=== PATIENT | female | born 1945 | race African-American/Black ===

== ENCOUNTER 2018-01-01 07:16 | Inpatient (IN) | payer OTHER, MEDICAID ==
[~2018-01-01] VITALS: Ht 175.3 cm; Wt 62.6 kg
[~2018-01-01 07:16] MED LIST: AMLO5TAB88; FURO-151; INSULIN; LOSA50TA20
[2018-01-01 10:51] LABS: HEMATOCRIT. 36.8 % (36.0-48.0); HEMOGLOBIN. 12.1 g/dL (12.0-16.0); MEAN CORPUSCULAR HEMOGLOBIN 29.8 pg (28.0-32.0); MEAN CORPUSCULAR VOLUME 90.8 fL (81.0-99.0); MEAN PLATELET VOLUME 7.7 fl (7.4-10.4); PLATELET 120 x1000/uL (130-400); RED BLOOD CELL COUNT 4.05 mill/uL (4.2-5.4); RED CELL DISTRIBUTION WIDTH 16.5 % (11.6-14.6)
[2018-01-01 10:59] LABS: INR 1.1; PARTIAL THROMBOPLASTIN TIME 27.3 sec (23.4-31.0); PROTHROMBIN TIME 11.8 sec (9.4-11.6)
[2018-01-01] MEDS ORDERED: MAGNESIUM/ALUMINUM HYDROXIDE/SIMETHICONE 30ML UDC PO PRN (11:00)
[2018-01-01] MEDS ORDERED: MORPHINE SULFATE 4 MG/ML CPJ (NOT FOR IM USE) IV PRN (11:00)
[2018-01-01] MEDS ORDERED: GUAIFENESIN 200MG/10ML SUGAR FREE UDC PO PRN (11:00)
[2018-01-01] MEDS ORDERED: IPRATROPIUM/ALBUTEROL 0.5-3(2.5)MG/3ML NEB INH PRN (11:00)
[2018-01-01] MEDS ORDERED: ENOXAPARIN 40MG/0.4ML SYR SUBCUT SCH (11:00)
[2018-01-01] MEDS ORDERED: DOCUSATE SODIUM 100MG CAPSULE PO PRN (11:00)
[2018-01-01] MEDS ORDERED: DIPHENHYDRAMINE 50MG/ML VIAL IV PRN (11:00)
[2018-01-01] MEDS ORDERED: LORAZEPAM 2MG/ML CPJ IV PRN (11:00)
[2018-01-01] MEDS ORDERED: ONDANSETRON HCL 4MG/2ML VIAL IV PRN (11:00)
[2018-01-01] MEDS ORDERED: NA PHOS,M-B/NA PHOS,DI-BA ENEMA 118ML PR PRN (11:00)
[2018-01-01 11:02] LABS: CHLORIDE 98 mEq/L (98-107)
[2018-01-01] MEDS: ACETAMINOPHEN 325MG TABLET PO PRN (11:43)
[2018-01-01 12:18] LABS: PLATELET ESTIMATE SLIGHTLY DECREASED
[2018-01-01 12:30] VITALS: BP 178/82
[2018-01-01] MEDS: ENOXAPARIN 30MG/0.3ML SYR SUBCUT SCH (14:35)
[2018-01-01] MEDS: CLONIDINE 0.1MG TABLET PO PRN (14:36)
[2018-01-01] MEDS: HYDROCODONE/ACETAMINOPHEN 5/325MG TABLET PO PRN (14:36)
[2018-01-01 15:53] VITALS: BP 178/82
[2018-01-01 16:00] VITALS: BP 153/77
[2018-01-01] MEDS ORDERED: DEXTROSE 50% WATER 50ML SYRINGE IV PRN (17:45)
[2018-01-01] MEDS: BLOOD SUGAR DIAGNOSTIC STRIP TEST SCH ×2 (18:04→21:00)
[2018-01-01] MEDS: INSULIN LISPRO 100 UNITS/ML SUBCUT SCH ×2 (18:18→21:07)
[2018-01-01] MEDS ORDERED: POTASSIUM CHLORIDE 20MEQ TABLET SR PO NR (19:30)
[2018-01-01 20:00] VITALS: BP 142/75
[2018-01-02 04:00] VITALS: BP 155/84
[2018-01-02 05:35] LABS: BASOPHILS % 0.7 % (0.0-2.0); EOSINOPHILS % 2.4 % (0.0-5.0); HEMATOCRIT. 31.7 % (36.0-48.0); HEMOGLOBIN. 10.5 g/dL (12.0-16.0); LYMPHOCYTES % 27.8 % (20.0-50.0); MEAN CORPUSCULAR HEMOGLOBIN 29.8 pg (28.0-32.0); MEAN CORPUSCULAR VOLUME 89.7 fL (81.0-99.0); MEAN PLATELET VOLUME 8.6 fl (7.4-10.4); MONOCYTES % 9.7 % (2.0-8.0); NEUTROPHILS % 59.4 % (40.0-76.0); PLATELET 96 x1000/uL (130-400); RED BLOOD CELL COUNT 3.53 mill/uL (4.2-5.4); RED CELL DISTRIBUTION WIDTH 16.1 % (11.6-14.6)
[2018-01-02 07:38] LABS: CHLORIDE 99 mEq/L (98-107)
[2018-01-02] MEDS: BLOOD SUGAR DIAGNOSTIC STRIP TEST SCH ×4 (07:40→21:30)
[2018-01-02 08:00] VITALS: BP 157/81
[2018-01-02 08:20] LABS: HDL CHOLESTEROL 45 mg/dL (40-59); LDL CHOLESTEROL 49 mg/dL (5-100)
[2018-01-02] MEDS: INSULIN LISPRO 100 UNITS/ML SUBCUT SCH ×4 (08:43→21:37)
[2018-01-02] MEDS: LOSARTAN POTASSIUM 50 MG TABLET PO SCH (08:46)
[2018-01-02] MEDS: FUROSEMIDE 40MG TABLET PO SCH (08:47)
[2018-01-02] MEDS: AMLODIPINE 5MG TABLET PO SCH (08:47)
[2018-01-02] MEDS: ASPIRIN 81MG EC TABLET PO SCH (08:47)
[2018-01-02] MEDS: ENOXAPARIN 30MG/0.3ML SYR SUBCUT SCH (08:47)
[2018-01-02] MEDS: HYDROCODONE/ACETAMINOPHEN 5/325MG TABLET PO PRN (10:15)
[2018-01-02 12:00] VITALS: BP 150/82
[2018-01-02 16:00] VITALS: BP 161/87
[2018-01-02] MEDS: ACETAMINOPHEN 325MG TABLET PO PRN (16:06)
[2018-01-02] MEDS: CLONIDINE 0.1MG TABLET PO PRN (16:07)
[2018-01-02 18:30] VITALS: BP 149/77
[2018-01-02 20:00] VITALS: BP 152/84
[2018-01-02] MEDS: IPRATROPIUM/ALBUTEROL 0.5-3(2.5)MG/3ML NEB HHN SCH (20:15)
[2018-01-02 20:20] LABS: BG BASE EXCESS 1.2 mmol/L (-2.0-2.0); BG CARBOXYHEMOGLOBIN 0.6 % (0.5-1.5); BG DEOXYHEMOGLOBIN 3.5 % (0.0-5.0); BG FRACTION INSPIRED OXYGEN 70; BG HCO3 ACT 25.9 mmol/L (22.0-26.0); BG METHEMOGLOBIN 0.3 % (0.0-1.5); BG OXYGEN SATURATION 96.5 % (92.0-98.5); BG OXYHEMOGLOBIN 95.6 % (94.0-97.0); BG PCO2 41.2 mmHg (35.0-45.0); BG PH 7.416 (7.350-7.450); BG PO2 87.6 mmHg (75.0-100.0); BG SAMPLE SITE LEFT RADIAL; BG TOTAL HEMOGLOBIN 11.4 g/dL (12.0-18.0); BG VENT MODE MASK - SIMPLE
[2018-01-03] VITALS: BP 130/76
[2018-01-03] MEDS: IPRATROPIUM/ALBUTEROL 0.5-3(2.5)MG/3ML NEB HHN SCH ×7 (00:32→23:54)
[2018-01-03 04:00] VITALS: BP 154/80
[2018-01-03] MEDS: BLOOD SUGAR DIAGNOSTIC STRIP TEST SCH ×4 (06:03→21:36)
[2018-01-03 06:43] LABS: BASOPHILS % 0.4 % (0.0-2.0); EOSINOPHILS % 1.5 % (0.0-5.0); HEMATOCRIT. 32.6 % (36.0-48.0); HEMOGLOBIN. 10.8 g/dL (12.0-16.0); LYMPHOCYTES % 25.6 % (20.0-50.0); MEAN CORPUSCULAR HEMOGLOBIN 29.6 pg (28.0-32.0); MEAN CORPUSCULAR VOLUME 89.6 fL (81.0-99.0); MEAN PLATELET VOLUME 8.2 fl (7.4-10.4); MONOCYTES % 8.7 % (2.0-8.0); NEUTROPHILS % 63.8 % (40.0-76.0); PLATELET 112 x1000/uL (130-400); RED BLOOD CELL COUNT 3.64 mill/uL (4.2-5.4); RED CELL DISTRIBUTION WIDTH 16.3 % (11.6-14.6)
[2018-01-03] MEDS: INSULIN LISPRO 100 UNITS/ML SUBCUT SCH ×4 (07:29→21:37)
[2018-01-03] MEDS: ENOXAPARIN 30MG/0.3ML SYR SUBCUT SCH (07:30)
[2018-01-03 08:00] VITALS: BP 132/71
[2018-01-03] MEDS: FUROSEMIDE 40MG TABLET PO SCH (09:14)
[2018-01-03] MEDS: AMLODIPINE 5MG TABLET PO SCH (09:14)
[2018-01-03] MEDS: LOSARTAN POTASSIUM 50 MG TABLET PO SCH (09:14)
[2018-01-03] MEDS: ASPIRIN 81MG EC TABLET PO SCH (09:14)
[2018-01-03 12:00] VITALS: BP 141/86
[2018-01-03 16:00] VITALS: BP 158/82
[2018-01-03 20:00] VITALS: BP 152/84
[2018-01-04] VITALS (7 sets, daily range): BP systolic 141–160; BP diastolic 75–89
[2018-01-04] MEDS: IPRATROPIUM/ALBUTEROL 0.5-3(2.5)MG/3ML NEB HHN SCH ×5 (03:26→20:16)
[2018-01-04] MEDS: BLOOD SUGAR DIAGNOSTIC STRIP TEST SCH ×4 (06:38→20:20)
[2018-01-04] MEDS: INSULIN LISPRO 100 UNITS/ML SUBCUT SCH ×5 (08:42→20:24)
[2018-01-04] MEDS: ASPIRIN 81MG EC TABLET PO SCH (08:42)
[2018-01-04] MEDS: LOSARTAN POTASSIUM 50 MG TABLET PO SCH (08:43)
[2018-01-04] MEDS: FUROSEMIDE 40MG TABLET PO SCH (08:43)
[2018-01-04] MEDS: AMLODIPINE 5MG TABLET PO SCH (08:43)
[2018-01-04] MEDS: ENOXAPARIN 30MG/0.3ML SYR SUBCUT SCH (08:46)
[2018-01-04 13:25] LABS: BASOPHILS % 0.4 % (0.0-2.0); HEMATOCRIT. 33.1 % (36.0-48.0); LYMPHOCYTES % 18.3 % (20.0-50.0); MEAN CORPUSCULAR HEMOGLOBIN 29.9 pg (28.0-32.0); MEAN CORPUSCULAR VOLUME 89.8 fL (81.0-99.0); MEAN PLATELET VOLUME 8.6 fl (7.4-10.4); MONOCYTES % 8.1 % (2.0-8.0); NEUTROPHILS % 71.2 % (40.0-76.0); PLATELET 121 x1000/uL (130-400); RED BLOOD CELL COUNT 3.69 mill/uL (4.2-5.4); RED CELL DISTRIBUTION WIDTH 16.3 % (11.6-14.6)
[2018-01-04] MEDS: ACETAMINOPHEN 325MG TABLET PO PRN (14:12)
[2018-01-04] MEDS: HYDROCODONE/ACETAMINOPHEN 5/325MG TABLET PO PRN (20:21)
== END 2018-01-04 22:15 | disposition short-term general hospital (02) | DRG 291 ==
LOC: ER 07:44 → 7WST 10:33 → EDBEDREQ 10:36 → ENRESERV 10:52
PROVIDERS: ADMIT Internal Medicine; ATTEND Internal Medicine
PROC: 5A1D70Z Performance of Urinary Filtration, Intermittent, Less than 6 Hours Per Day (ICD-10-PCS; principal; 2018-01-02)
PROC: 5A1D70Z Performance of Urinary Filtration, Intermittent, Less than 6 Hours Per Day (ICD-10-PCS; 2018-01-03)
PROC: 5A1D70Z Performance of Urinary Filtration, Intermittent, Less than 6 Hours Per Day (ICD-10-PCS; 2018-01-04)
DX: I13.2 Hypertensive heart and chronic kidney disease with heart failure and with stage 5 chronic kidney disease, or end stage renal disease (principal); I50.33 Acute on chronic diastolic (congestive) heart failure; J96.01 Acute respiratory failure with hypoxia; N18.6 End stage renal disease; E11.22 Type 2 diabetes mellitus with diabetic chronic kidney disease; D64.9 Anemia, unspecified; I25.10 Atherosclerotic heart disease of native coronary artery without angina pectoris; E03.9 Hypothyroidism, unspecified; E87.6 Hypokalemia; Z99.2 Dependence on renal dialysis
CPT/HCPCS: 36415; 36600; 71045; 80048; 80053; 80061; 82375; 82805; 82962; 83690; 84439; 84443; 84484; 85025; 85610; 85730; 93005; 93306; 94640; 99285; J1650; J1815; J7030; J7620

== ENCOUNTER 2018-06-12 17:04 | Inpatient (IN) | payer OTHER, MEDICAID ==
[~2018-06-12] VITALS: Ht 170.2 cm; Wt 62.6 kg
[~2018-06-12 17:04] MED LIST changes: -INSULIN
[2018-06-12 17:56] LABS: BASOPHILS % 0.8 % (0.0-2.0); EOSINOPHILS % 1.1 % (0.0-5.0); HEMATOCRIT. 43.6 % (36.0-48.0); HEMOGLOBIN. 14.1 g/dL (12.0-16.0); LYMPHOCYTES % 16.9 % (20.0-50.0); MEAN CORPUSCULAR HEMOGLOBIN 30.4 pg (28.0-32.0); MEAN PLATELET VOLUME 8.4 fl (7.4-10.4); MONOCYTES % 6.1 % (2.0-8.0); NEUTROPHILS % 75.1 % (40.0-76.0); PLATELET 126 x1000/uL (130-400); RED BLOOD CELL COUNT 4.64 mill/uL (4.2-5.4); RED CELL DISTRIBUTION WIDTH 18.2 % (11.6-14.6)
[2018-06-12 18:00] LABS: CHLORIDE 95 mEq/L (98-107)
[2018-06-12 18:04] LABS: INR 1.2; PARTIAL THROMBOPLASTIN TIME 29.9 sec (23.4-31.0); PROTHROMBIN TIME 11.6 sec (9.1-11.1)
[2018-06-12] MEDS ORDERED: ASPIRIN 325MG EC TABLET PO ONE (19:45)
[2018-06-12 23:13] VITALS: BP 134/74
[2018-06-13] VITALS (8 sets, daily range): BP systolic 110–154; BP diastolic 56–77
[2018-06-13] MEDS: ASPIRIN 325MG EC TABLET PO SCH ×2 (00:54→08:25)
[2018-06-13] MEDS: CARVEDILOL 3.125 MG TABLET PO SCH ×3 (00:55→21:57)
[2018-06-13] MEDS: AMLODIPINE 10MG TABLET PO SCH ×2 (00:56→08:14)
[2018-06-13 06:08] LABS: PHOSPHORUS 4.7 mg/dL (2.5-4.9)
[2018-06-13 06:49] LABS: BASOPHILS % 0.3 % (0.0-2.0); EOSINOPHILS % 2.1 % (0.0-5.0); HEMATOCRIT. 38.2 % (36.0-48.0); HEMOGLOBIN. 12.4 g/dL (12.0-16.0); LYMPHOCYTES % 31.2 % (20.0-50.0); MEAN CORPUSCULAR HEMOGLOBIN 30.2 pg (28.0-32.0); MEAN CORPUSCULAR VOLUME 93.1 fL (81.0-99.0); MONOCYTES % 8.8 % (2.0-8.0); NEUTROPHILS % 57.6 % (40.0-76.0); PLATELET 110 x1000/uL (130-400); RED CELL DISTRIBUTION WIDTH 17.7 % (11.6-14.6)
[2018-06-13] MEDS: BLOOD SUGAR DIAGNOSTIC STRIP TEST SCH ×8 (07:40→21:38)
[2018-06-13] MEDS ORDERED: INSULIN LISPRO 100 UNITS/ML SUBCUT SCH (08:10)
[2018-06-13] MEDS: SEVELAMER CARBONATE 800 MG TABLET PO SCH ×3 (08:25→17:32)
[2018-06-13] MEDS ORDERED: FOLIC ACID/VITAMIN B COMP W-C TABLET PO SCH (09:00)
[2018-06-13] MEDS: INSULIN LISPRO 100 UNITS/ML SUBCUT SCH ×4 (09:09→21:51)
[2018-06-13] MEDS ORDERED: DEXTROSE 50% WATER 50ML SYRINGE IV PRN ×2 (09:15)
== END 2018-06-13 22:15 | disposition home or self-care (01) | DRG 291 ==
LOC: ER 17:14 → 7WST 19:55 → ENRESERV 21:02
PROVIDERS: ADMIT Internal Medicine; ATTEND Internal Medicine
PROC: 5A1D70Z Performance of Urinary Filtration, Intermittent, Less than 6 Hours Per Day (ICD-10-PCS; principal; 2018-06-13)
DX: I13.2 Hypertensive heart and chronic kidney disease with heart failure and with stage 5 chronic kidney disease, or end stage renal disease (principal); G93.41 Metabolic encephalopathy; I50.23 Acute on chronic systolic (congestive) heart failure; N18.6 End stage renal disease; E11.649 Type 2 diabetes mellitus with hypoglycemia without coma; I42.0 Dilated cardiomyopathy; E11.65 Type 2 diabetes mellitus with hyperglycemia; D69.6 Thrombocytopenia, unspecified; E03.9 Hypothyroidism, unspecified; E11.22 Type 2 diabetes mellitus with diabetic chronic kidney disease; E78.00 Pure hypercholesterolemia, unspecified; E78.5 Hyperlipidemia, unspecified; E87.8 Other disorders of electrolyte and fluid balance, not elsewhere classified; I27.20 Pulmonary hypertension, unspecified; I45.10 Unspecified right bundle-branch block; I34.0 Nonrheumatic mitral (valve) insufficiency; Y92.039 Unspecified place in apartment as the place of occurrence of the external cause; Z83.3 Family history of diabetes mellitus; Z87.891 Personal history of nicotine dependence; Z90.710 Acquired absence of both cervix and uterus; Z99.2 Dependence on renal dialysis; Z79.899 Other long term (current) drug therapy; Z90.49 Acquired absence of other specified parts of digestive tract; Z88.8 Allergy status to other drugs, medicaments and biological substances
CPT/HCPCS: 36415; 70450; 71045; 80048; 80053; 80061; 82962; 83036; 83880; 84100; 84484; 85025; 85610; 85730; 93005; 97162; 99285; J1815; J7030

== ENCOUNTER 2019-06-18 16:30 | Inpatient (IN) | payer OTHER, MEDICAID ==
[~2019-06-18] VITALS: Ht 175.3 cm; Wt 63.1 kg
[~2019-06-18 16:30] MED LIST changes: -LOSA50TA20; +LOSA50TA41
[2019-06-18 17:57] LABS: HEMOGLOBIN. 9.5 g/dL (12.0-16.0); MEAN CORPUSCULAR HEMOGLOBIN 30.9 pg (28.0-32.0); PLATELET 203 x1000/uL (130-400); RED BLOOD CELL COUNT 3.09 mill/uL (4.2-5.4); RED CELL DISTRIBUTION WIDTH 15.4 % (11.6-14.6)
[2019-06-18 18:04] LABS: CHLORIDE 95 mEq/L (98-107)
[2019-06-18 18:06] LABS: INR 1.3; PROTHROMBIN TIME 13.3 sec (9.6-11.0)
[2019-06-18 18:48] LABS: PLATELET ESTIMATE NORMAL
[2019-06-18] MEDS ORDERED: ASPIRIN 325MG TABLET ONE (19:07)
[2019-06-18] MEDS ORDERED: HEPARIN 5000 UNITS/ML VIAL IV ONE (19:15)
[2019-06-18] MEDS ORDERED: HEPARIN 25,000 UNITS PREMIX 500 ML IV ONE (19:15)
[2019-06-18] MEDS ORDERED: ASPIRIN 81MG TABLET PO ONE (19:15)
[2019-06-18 19:53] LABS: INR 1.5; PARTIAL THROMBOPLASTIN TIME 40.1 sec (23.4-31.0); PROTHROMBIN TIME 14.7 sec (9.6-11.0)
[2019-06-18] MEDS ORDERED: ONDANSETRON HCL 4MG/2ML INJ IV STA (20:42)
[2019-06-18] MEDS ORDERED: SODIUM CHLORIDE 0.9% 1000ML BAG (SEPSIS BOLUS) IV ONE (20:45)
[2019-06-18] MEDS ORDERED: VANCOMYCIN 1 G PREMIX 200 ML IV ONE (20:45)
[2019-06-18] MEDS ORDERED: PIPERACILLIN/TAZ 3.375G PREMIX 50 ML IV ONE (20:45)
[2019-06-18] MEDS ORDERED: ACETAMINOPHEN 650MG/20.3ML UDC PO ONE (20:45)
[2019-06-18] MEDS ORDERED: HEPARIN BOLUS PRN aPTT <30 IV (21:00)
[2019-06-18] MEDS ORDERED: HEPARIN BOLUS PRN aPTT 30-44 IV (21:00)
[2019-06-18] MEDS ORDERED: HEPARIN 25,000 UNITS PREMIX 500 ML IV SCH (21:00)
[2019-06-18] MEDS ORDERED: CLONIDINE 0.1MG TABLET PO PRN (22:15)
[2019-06-18] MEDS ORDERED: IPRATROPIUM/ALBUTEROL 0.5-3(2.5)MG/3ML NEB NEB PRN (22:15)
[2019-06-18] MEDS ORDERED: ONDANSETRON HCL 4MG/2ML INJ IV PRN (22:15)
[2019-06-18] MEDS ORDERED: PIPERACILLIN/TAZ 3.375G PREMIX 50 ML IV SCH (22:15)
[2019-06-18] MEDS ORDERED: DOCUSATE SODIUM 100MG CAPSULE PO PRN (22:15)
[2019-06-18 23:40] VITALS: BP 71/34
[2019-06-19] VITALS (55 sets, daily range): BP systolic 75–125; BP diastolic 42–75
[2019-06-19] MEDS ORDERED: METOPROLOL TARTRATE 25MG TABLET PO SCH
[2019-06-19] MEDS ORDERED: VANCOMYCIN 1 G PREMIX 200 ML IV NR (03:00)
[2019-06-19] MEDS ORDERED: DEXTROSE 50% WATER 50ML SYRINGE IV PRN (04:15)
[2019-06-19] MEDS ORDERED: SODIUM CHLORIDE 0.9% 100 ML IV ONE (05:00)
[2019-06-19] MEDS ORDERED: HEPARIN BOLUS PRN aPTT <30 IV (05:15)
[2019-06-19] MEDS ORDERED: HEPARIN BOLUS PRN aPTT 30-44 IV (05:15)
[2019-06-19] MEDS ORDERED: HEPARIN 25,000 UNITS PREMIX 500 ML IV SCH (05:15)
[2019-06-19] MEDS: PIPERACILLIN/TAZOBACTAM 2.25 G in DEXTROSE 5% WATER 50 ML IV SCH ×2 (05:19→12:10)
[2019-06-19 06:20] LABS: CHLORIDE 98 mEq/L (98-107)
[2019-06-19 06:42] LABS: CREATINE KINASE 135 IU/L (26-192); CREATINE KINASE MB FRACTION 1.1 ng/mL (0.5-3.6); HDL CHOLESTEROL 28 mg/dL (40-59); LDL CHOLESTEROL 20 mg/dL (5-100); T4 FREE 0.72 ng/dL (0.76-1.46)
[2019-06-19 07:00] LABS: HEMATOCRIT. 25.5 % (36.0-48.0); HEMOGLOBIN. 8.2 g/dL (12.0-16.0); MEAN CORPUSCULAR HEMOGLOBIN 29.9 pg (28.0-32.0); MEAN CORPUSCULAR VOLUME 93.4 fL (81.0-99.0); MEAN PLATELET VOLUME 7.1 fl (7.4-10.4); PLATELET 132 x1000/uL (130-400); RED BLOOD CELL COUNT 2.73 mill/uL (4.2-5.4); RED CELL DISTRIBUTION WIDTH 15.7 % (11.6-14.6)
[2019-06-19 08:01] LABS: PLATELET ESTIMATE NORMAL
[2019-06-19] MEDS: ASPIRIN 81MG TABLET PO SCH (08:48)
[2019-06-19] MEDS: FOLIC ACID/VITAMIN B COMP W-C TABLET PO SCH (08:48)
[2019-06-19] MEDS: LEVOTHYROXINE SODIUM 50MCG TABLET PO SCH (08:48)
[2019-06-19] MEDS: BLOOD SUGAR DIAGNOSTIC STRIP TEST SCH ×4 (08:48→21:37)
[2019-06-19] MEDS: INSULIN LISPRO 100 UNITS/ML SUBCUT SCH ×4 (09:18→21:00)
[2019-06-19] MEDS ORDERED: SODIUM BICARBONATE 4% (2.4MEQ) 5ML VIAL IV ONE (09:59)
[2019-06-19] MEDS ORDERED: LIDOCAINE HCL 1% 20ML VIAL (Pyxis) INJ ONE (09:59)
[2019-06-19] MEDS ORDERED: KCL 20MEQ/100ML PREMIX 100 ML IV NR (10:00)
[2019-06-19 10:10] LABS: PHOSPHORUS 4.2 mg/dL (2.5-4.9)
[2019-06-19] MEDS ORDERED: SODIUM CHLORIDE 0.9% 1,000 ML IV SCH (12:15)
[2019-06-19] MEDS: ACETAMINOPHEN 325MG TABLET PO PRN ×2 (13:29→23:48)
[2019-06-19 16:00] LABS: CREATINE KINASE MB FRACTION 1.8 ng/mL (0.5-3.6)
[2019-06-19] MEDS ORDERED: PHENYLEPHRINE 40 MG in DEXT 5% WATER 246 ML IV PRN (16:15)
[2019-06-19 16:57] LABS: HEPATITIS B SURFACE ANTIGEN NEGATIVE
[2019-06-19 17:27] LABS: HEPATITIS A AB IGM NEGATIVE (NEGATIVE)
[2019-06-19 18:46] LABS: ETHANOL BLOOD < 10 mg/dL
[2019-06-19 18:50] LABS: T4 FREE 0.77 ng/dL (0.76-1.46)
[2019-06-19] MEDS ORDERED: MEROPENEM 500 MG in SODIUM CHLORIDE 0.9% 50 ML IV SCH (19:00)
[2019-06-19 19:12] LABS: VITAMIN B12 SERUM 1520 pg/mL (211-911)
[2019-06-19 19:22] LABS: FOLIC ACID (FOLATE) SERUM > 20.00 ng/mL (>5.38)
[2019-06-19] MEDS ORDERED: AMIKACIN 500MG in SODIUM CHLORIDE 0.9% 100ML IV NR (21:00)
[2019-06-20] VITALS (33 sets, daily range): BP systolic 123–171; BP diastolic 54–86
[2019-06-20 04:12] LABS: HIV SCREEN 4G Non Reactive (Non Reactive)
[2019-06-20 05:39] LABS: HEMATOCRIT. 31.5 % (36.0-48.0); HEMOGLOBIN. 10.2 g/dL (12.0-16.0); MEAN CORPUSCULAR HEMOGLOBIN 29.5 pg (28.0-32.0); MEAN CORPUSCULAR VOLUME 90.7 fL (81.0-99.0); MEAN PLATELET VOLUME 8.2 fl (7.4-10.4); PLATELET 82 x1000/uL (130-400); RED BLOOD CELL COUNT 3.48 mill/uL (4.2-5.4)
[2019-06-20 08:00] LABS: PLATELET ESTIMATE SLIGHTLY DECREASED
[2019-06-20] MEDS: BLOOD SUGAR DIAGNOSTIC STRIP TEST SCH ×4 (08:12→21:35)
[2019-06-20] MEDS: ASPIRIN 81MG TABLET PO SCH (08:23)
[2019-06-20] MEDS: LEVOTHYROXINE SODIUM 50MCG TABLET PO SCH (08:23)
[2019-06-20] MEDS: INSULIN LISPRO 100 UNITS/ML SUBCUT SCH ×4 (08:23→21:34)
[2019-06-20] MEDS: FOLIC ACID/VITAMIN B COMP W-C TABLET PO SCH (08:23)
[2019-06-20] MEDS ORDERED: ENOXAPARIN 40MG/0.4ML SYR SUBCUT SCH (09:00)
[2019-06-20] MEDS ORDERED: ENOXAPARIN 30MG/0.3ML SYR SUBCUT SCH (09:00)
[2019-06-20] MEDS ORDERED: VANCOMYCIN 1 G PREMIX 200 ML IV NR (13:00)
[2019-06-20] MEDS: CEFTRIAXONE 2 G in DEXTROSE 5% WATER 50 ML IV SCH (15:48)
[2019-06-20] MEDS: METRONIDAZOLE 500 MG PREMIX 100 ML IV SCH ×2 (16:43→21:35)
[2019-06-20] MEDS: ACETAMINOPHEN 325MG TABLET PO PRN (21:57)
[2019-06-21] VITALS (12 sets, daily range): BP systolic 105–141; BP diastolic 54–73
[2019-06-21] MEDS: METRONIDAZOLE 500 MG PREMIX 100 ML IV SCH ×3 (05:16→22:18)
[2019-06-21] MEDS: BLOOD SUGAR DIAGNOSTIC STRIP TEST SCH ×4 (07:30→20:44)
[2019-06-21 08:21] LABS: HEMATOCRIT. 36.9 % (36.0-48.0); HEMOGLOBIN. 11.8 g/dL (12.0-16.0); MEAN CORPUSCULAR HEMOGLOBIN 29.1 pg (28.0-32.0); MEAN CORPUSCULAR VOLUME 90.9 fL (81.0-99.0); MEAN PLATELET VOLUME 8.3 fl (7.4-10.4); PLATELET 98 x1000/uL (130-400); RED BLOOD CELL COUNT 4.05 mill/uL (4.2-5.4); RED CELL DISTRIBUTION WIDTH 18.4 % (11.6-14.6)
[2019-06-21] MEDS: INSULIN LISPRO 100 UNITS/ML SUBCUT SCH ×4 (08:56→20:43)
[2019-06-21] MEDS: LEVOTHYROXINE SODIUM 50MCG TABLET PO SCH (08:57)
[2019-06-21] MEDS: FOLIC ACID/VITAMIN B COMP W-C TABLET PO SCH (08:57)
[2019-06-21 10:18] LABS: PLATELET ESTIMATE DECREASED
[2019-06-21] MEDS: CEFTRIAXONE 2 G in DEXTROSE 5% WATER 50 ML IV SCH (18:06)
[2019-06-21] MEDS: ACETAMINOPHEN 325MG TABLET PO PRN (20:35)
[2019-06-22] VITALS (9 sets, daily range): BP systolic 110–141; BP diastolic 55–72
[2019-06-22] MEDS: METRONIDAZOLE 500 MG PREMIX 100 ML IV SCH ×2 (05:48→14:14)
[2019-06-22] MEDS: BLOOD SUGAR DIAGNOSTIC STRIP TEST SCH ×2 (06:38→13:14)
[2019-06-22] MEDS: LEVOTHYROXINE SODIUM 50MCG TABLET PO SCH (06:44)
[2019-06-22] MEDS: ACETAMINOPHEN 325MG TABLET PO PRN (06:44)
[2019-06-22 06:54] LABS: HEMATOCRIT. 35.8 % (36.0-48.0); HEMOGLOBIN. 11.5 g/dL (12.0-16.0); MEAN CORPUSCULAR HEMOGLOBIN 29.1 pg (28.0-32.0); MEAN PLATELET VOLUME 8.5 fl (7.4-10.4); PLATELET 88 x1000/uL (130-400); RED BLOOD CELL COUNT 3.94 mill/uL (4.2-5.4); RED CELL DISTRIBUTION WIDTH 18.1 % (11.6-14.6)
[2019-06-22 06:58] LABS: PHOSPHORUS 3.6 mg/dL (2.5-4.9)
[2019-06-22] MEDS: FOLIC ACID/VITAMIN B COMP W-C TABLET PO SCH (08:38)
[2019-06-22] MEDS: INSULIN LISPRO 100 UNITS/ML SUBCUT SCH ×2 (08:39→13:22)
[2019-06-22] MEDS: CEFTRIAXONE 2 G in DEXTROSE 5% WATER 50 ML IV SCH (13:22)
[2019-06-22 16:16] LABS: PLATELET ESTIMATE DECREASED
[2019-06-24 04:08] LABS: BARBITURATE SCREEN Negative ug/mL (Cutoff:0.1); BENZODIAZEPINE SCREEN Negative ng/mL (Cutoff:20); OPIATES SCREEN Negative ng/mL (Cutoff:5); PHENCYCLIDINE SCREEN Negative ng/mL (Cutoff:8)
== END 2019-06-22 15:26 | disposition short-term general hospital (02) | DRG 871 ==
LOC: ER 16:30 → EDBEDREQTM 19:32 → EDBEDREQ 19:32 → EDBEDREQTM 20:00 → EDBEDREQ 20:00 → 5EST 22:24 → ENRESERV 22:51 → CVICU 06-19 02:52 → 5EST 06-20 10:37
PROVIDERS: ADMIT Internal Medicine; ATTEND Internal Medicine
PROC: 02HV33Z Insertion of Infusion Device into Superior Vena Cava, Percutaneous Approach (ICD-10-PCS; 2019-06-19)
PROC: B548ZZA Ultrasonography of Superior Vena Cava, Guidance (ICD-10-PCS; 2019-06-19)
PROC: 5A1D70Z Performance of Urinary Filtration, Intermittent, Less than 6 Hours Per Day (ICD-10-PCS; 2019-06-19)
PROC: 30233N1 Transfusion of Nonautologous Red Blood Cells into Peripheral Vein, Percutaneous Approach (ICD-10-PCS; 2019-06-19)
PROC: 4A00X4Z Measurement of Central Nervous Electrical Activity, External Approach (ICD-10-PCS; principal; 2019-06-20)
PROC: 5A1D70Z Performance of Urinary Filtration, Intermittent, Less than 6 Hours Per Day (ICD-10-PCS; 2019-06-20)
PROC: 5A1D70Z Performance of Urinary Filtration, Intermittent, Less than 6 Hours Per Day (ICD-10-PCS; 2019-06-22)
DX: A41.51 Sepsis due to Escherichia coli [E. coli] (principal); R65.21 Severe sepsis with septic shock; N18.6 End stage renal disease; G92 Toxic encephalopathy; I21.4 Non-ST elevation (NSTEMI) myocardial infarction; I42.0 Dilated cardiomyopathy; D68.9 Coagulation defect, unspecified; I13.2 Hypertensive heart and chronic kidney disease with heart failure and with stage 5 chronic kidney disease, or end stage renal disease; E87.2 Acidosis; I50.32 Chronic diastolic (congestive) heart failure; E72.20 Disorder of urea cycle metabolism, unspecified; D63.1 Anemia in chronic kidney disease; I45.10 Unspecified right bundle-branch block; E87.6 Hypokalemia; E11.22 Type 2 diabetes mellitus with diabetic chronic kidney disease; D69.6 Thrombocytopenia, unspecified; E03.9 Hypothyroidism, unspecified; E11.65 Type 2 diabetes mellitus with hyperglycemia; M19.90 Unspecified osteoarthritis, unspecified site; E78.5 Hyperlipidemia, unspecified; E86.0 Dehydration; G31.9 Degenerative disease of nervous system, unspecified; K76.9 Liver disease, unspecified; I95.9 Hypotension, unspecified; I25.10 Atherosclerotic heart disease of native coronary artery without angina pectoris; I35.8 Other nonrheumatic aortic valve disorders; K52.9 Noninfective gastroenteritis and colitis, unspecified; K57.90 Diverticulosis of intestine, part unspecified, without perforation or abscess without bleeding; N25.0 Renal osteodystrophy; N28.1 Cyst of kidney, acquired; N28.89 Other specified disorders of kidney and ureter; I25.2 Old myocardial infarction; Z83.3 Family history of diabetes mellitus; Z90.49 Acquired absence of other specified parts of digestive tract; Z99.2 Dependence on renal dialysis; Z79.899 Other long term (current) drug therapy; Z88.8 Allergy status to other drugs, medicaments and biological substances
CPT/HCPCS: 36415; 70551; 71045; 74176; 76700; 76770; 76937; 80048; 80061; 80069; 80150; 80202; 80307; 80320; 82140; 82550; 82553; 82607; 82728; 82746; 82962; 83036; 83540; 83550; 83605; 83735; 83880; 84100; 84145; 84439; 84443; 84480; 84481; 84484; 85379; 86705; 86709; 86803; 86850; 86900; 86920; 87015; 87045; 87186; 87340; 87389; 87427; 87449; 89055; 92610; 93005; 93306; 99291; C1725; C1769; J0278; J0696; J1644; J1815; J2185; J2405; J2543; J3370; J3480; J3490; J7030; J7040; J7050; J7060; P9016; G0480